=== PATIENT | male | born 1955 | race Caucasian/White ===

== ENCOUNTER 2019-01-23 16:54 | Emergency (ER) | payer OTHER ==
[~2019-01-23] VITALS: Ht 182.9 cm; Wt 72.0 kg
[2019-01-23 16:56] VITALS: Ht 182.9 cm; Wt 72.0 kg
[2019-01-23] MEDS ORDERED: NITROGLYCERIN 2% 1 GM OINT PKT TD STA (16:58)
--- NOTE | 2019-01-23 16:59 | ERD ---
ER Documentation Chief Complaint Chief Complaint Chest pain from assisted living facility HPI Pleasant 63-year-old gentleman history of coronary disease with stents who presents the emergency room with 1 hour of chest pain that is described as pressure "an elephant is sitting on my chest ". Patient has noted approximately 1-2 days of cough and congestion but he describes the cough is dry nonproductive. No fevers or chills. He denies pleuritic pain or calf swelling. This is very consistent to anginal equivalent. Patient was given aspirin and nitroglycerin prior to arrival and pain is now 2 out of 10. ROS All systems reviewed and are negative except as per history of present illness. Medications Home Meds Reported Medications Atorvastatin* (Atorvastatin*) 80 Mg Tablet, 80 MG PO QHS, #30 TAB 01/23/19 Labetalol Hcl* (Labetalol Hcl*) 200 Mg Tablet, 200 MG PO BID, TAB 01/23/19 Tamsulosin Hcl* (Tamsulosin Hcl*) 0.4 Mg Cap.er.24h, 0.4 MG PO HS, CAP 01/23/19 Duloxetine Hcl* (Duloxetine Hcl*) 60 Mg Capsule.dr, 120 MG PO DAILY, #30 CAP 01/23/19 Oxycodone Hcl* (IR) (Oxycodone Hcl*) 5 Mg Capsule, 5 MG PO NEEDED PRN for PAIN, CAP 01/23/19 Mirtazapine* (Mirtazapine*) 15 Mg Tablet, 7.5 MG PO HS, TAB 01/23/19 Amlodipine Besylate* (Norvasc*) 5 Mg Tablet, 5 MG PO DAILY, TAB 01/23/19 Dabigatran Etexilate Mesylate* (Pradaxa*) 75 Mg Cap, 75 MG PO BID, CAP 01/23/19 Nitroglycerin* (Nitroglycerin* SL) 0.4 Mg Tab.subl, 0.4 MG SL Q5MIN PRN for CHEST PAIN, BOTTLE 01/23/19 Allergies Allergies: Coded Allergies: No Known Allergy (Unverified , 01/23/19) Physical Exam Vitals Vital Signs Date Temp Pulse Resp B/P (MAP) Pulse Ox O2 O2 Flow FiO2 Time Delivery Rate 01/23/19 60 20 143/75 98 Room Air 19:09 (97) 01/23/19 Nasal 2 18:05 Cannula 01/23/19 98.9 70 20 119/71 98 Nasal 18:05 (87) Cannula 01/23/19 98.9 86 18 109/67 98 16:56 (81) Physical Exam General: Well developed, well nourished, no acute distress Head: Normocephalic, atraumatic. Eyes: Pupils equally reactive, EOM intact ENT: Moist mucous membranes Neck: Supple, no lymphadenopathy Respiratory: Lungs clear bilaterally, no distress Cardiovascular: RRR, no murmurs, rubs, or gallops Abdominal: Soft, non-tender, non-distended, no peritoneal signs : Deferred MSK: No edema, no unilateral swelling, 5/5 strength Neurologic: Alert and oriented, moving all extremities, normal speech, no focal weakness, no cerebellar signs Skin: No rash Psych: Normal mood Result Diagram: 01/23/19 1719 01/23/19 1719 Results 24 hrs Laboratory Tests Test 01/23/19 17:19 White Blood Count 7.5 10^3/ul Red Blood Count 3.72 10^6/ul Hemoglobin 10.5 g/dl Hematocrit 32.4 % Mean Corpuscular Volume 87.1 fl Mean Corpuscular Hemoglobin 28.2 pg Mean Corpuscular Hemoglobin Concent 32.4 g/dl Red Cell Distribution Width 13.6 % Platelet Count 256 10^3/UL Mean Platelet Volume 9.6 fl Immature Granulocytes % 0.700 % Neutrophils % 69.2 % Lymphocytes % 12.6 % Monocytes % 10.0 % Eosinophils % 7.2 % Basophils % 0.3 % Nucleated Red Blood Cells % 0.0 /100WBC Immature Granulocytes # 0.050 10^3/ul Neutrophils # 5.2 10^3/ul Lymphocytes # 0.9 10^3/ul Monocytes # 0.8 10^3/ul Eosinophils # 0.5 10^3/ul Basophils # 0.0 10^3/ul Nucleated Red Blood Cells # 0.0 10^3/ul Sodium Level 140 mmol/L Potassium Level 4.0 mmol/L Chloride Level 111 mmol/L Carbon Dioxide Level 23 mmol/L Anion Gap 6 Blood Urea Nitrogen 20 mg/dl Creatinine 1.63 mg/dl Est Glomerular Filtrat Rate mL/min 43 mL/min Glucose Level 111 mg/dl Calcium Level 8.9 mg/dl Troponin I < 0.012 ng/ml Current Medications Medications Dose Sig/Ray Start Time Status Last (Trade) Ordered Route PRN Stop Time Admin Dose Reason Admin 1 inch ONCE STAT 01/23/19 DC Nitroglycerin TD 16:58 01/23/19 16:59 (Nitroglyceri n 2% Oint) Azithromycin 250 ml @ ONCE STAT 01/23/19 250 mls/hr IV 18:44 01/23/19 19:43 Ceftriaxone 50 ml @ ONCE STAT 01/23/19 DC 01/23/19 Sodium 100 mls/hr IVPB 18:44 19:05 01/23/19 19:13 Procedures/MDM EKG, MONITORS, & DIAGNOSTIC IMAGING: EKG: I reviewed and interpreted a 12-lead EKG. Rhythm: Normal sinus rhythm ST Changes: No contiguous ST segment elevations T waves: No contiguous T wave inversions Impression: [No evidence of acute cardiac ischemia] Repeat EKG: EKG: I reviewed and interpreted a 12-lead EKG. Rhythm: Normal sinus rhythm ST Changes: No contiguous ST segment elevations T waves: No contiguous T wave inversions Impression: [No evidence of acute cardiac ischemia] Chest x-ray: I reviewed and interpreted a 1 view of the chest Mediastinum: No enlargement Cardiac silhouette: No cardiomegaly Airspace: Right-sided infiltrate with pleural effusion Bones: No evidence of fracture LAB INTERPRETATION: * No significant leukocytosis, negative troponin MEDICAL DECISION MAKING: The patient's history, physical exam and clinical presentation is concerning for possible cardiogenic etiology and acute coronary syndrome. Based on the patient's clinical exam and history and risk factors, I have a much lower clinical concern for pulmonary embolism, acute aortic dissection, pneumothorax, pneumonia, cardiac tamponade HEART Score: 4-5 MACE Rate: 16.6% Shared Decision Making: We had a conversation regarding risk stratification, M CLOVIS rate, and the risks, benefits, alternatives of disposition planning options. Disposition planning: Admission ER COURSE: * The patient has received appropriate aspirin and nitroglycerin per paramedics. Nitro paste applied. Chest pain-free. * The patient additionally has cough congestion with chest x-ray concerning for possible right-sided pneumonia. The patient does not meet Sirs criteria. Is not consistent with sepsis. Blood cultures prior to antibiotics. The patient does not live in a halfway. Low risk for Pseudomonas. Ceftriaxone and azithromycin provided. * The patient is stable for transportation to [facility]. CONSULTATION: [facility], Dr. Arrington, authorization #[id number] DISPOSITION PLAN: Telemetry admission for management of chest pain to rule out acute coronary syndrome, serial enzymes, risk stratification and consideration of provocative testing Patient is a [employer] member and stable for transfer CONSULTATION: Accepting care team and consultations: I discussed the current laboratory data, diagnostic imaging and emergency care provided. Admitting team: Dr. Arrington Admitting team indication: Insurance directed Departure Diagnosis: Primary Impression: Chest pain Chest pain type: unspecified Qualified Codes: R07.9 - Chest pain, unspecified Additional Impressions: Community acquired pneumonia Laterality: right Lung location: lower lobe of lung Qualified Codes: J18.1 - Lobar pneumonia, unspecified organism Acute renal insufficiency Condition: Stable NICANOR SHEETS MD Jan 23, 2019 16:59
[2019-01-23] MEDS ORDERED: AZITHROMYCIN 500MG/NS (PMX) 250 ML IV STA (18:44)
[2019-01-23] MEDS ORDERED: CEFTRIAXONE 1 GM/50 ML (PMX) 50 ML IVPB STA (18:44)
[2019-01-23] MEDS ORDERED: NITR0.4T32 SL (18:53)
[2019-01-23] MEDS ORDERED: DABI75CA2 PO (18:53)
[2019-01-23] MEDS ORDERED: AMLO5TAB4 PO (18:54)
[2019-01-23] MEDS ORDERED: MIRT15TA5 PO (18:54)
[2019-01-23] MEDS ORDERED: DULO60CA59 PO (18:55)
[2019-01-23] MEDS ORDERED: OXYC5CAP17 PO (18:55)
[2019-01-23] MEDS ORDERED: TAMS0.4C2 PO (18:56)
[2019-01-23] MEDS ORDERED: LABE200T25 PO (18:56)
[2019-01-23] MEDS ORDERED: ATOR-2 PO (18:56)
[2019-01-23 20:30] VITALS: BP 146/86; PULSE 98; RESP 20
== END 2019-01-23 20:55 | disposition short-term general hospital (02) ==
LOC: E/R 16:54
DX: J18.1 Lobar pneumonia, unspecified organism (principal); I25.10 Atherosclerotic heart disease of native coronary artery without angina pectoris; N28.9 Disorder of kidney and ureter, unspecified; Z98.61 Coronary angioplasty status
CPT/HCPCS: 36415; 71045; 80048; 84484; 85025; 87040; 93005; 96374; 96375; 99285; J0456; J0696